=== PATIENT | female | born 1965 | race Caucasian/White ===

== ENCOUNTER → 2017-01-27 | Day surgery (SDC) | payer OTHER ==
[2017-01-27] VITALS (11 sets, daily range): BP systolic 119–160; BP diastolic 77–103; PULSE 78–100; RESP 16–21; O2SAT 92–100
[~2017-01-27] VITALS: Ht 162.6 cm; Wt 97.8 kg
[~2017-01-27] MED LIST: ALBU8.5H2 INHALATION; AMT25T PO; Bupivacaine-MPF 0.5% W/EPI 30 mL Inj NERVEBLOCK ONE; CHOL100045 PO; Clindamycin Inj 600 MG in IV Premix 1 EACH IV ONE; Dexamethasone 4 mg/mL Inj IVPUSH PRN; Dexamethasone 4 mg/mL Inj ONE; EPHEDrine Sulfate 50 mg/mL Inj IVPUSH PRN; GEMF600T3 PO; Gentamicin 40 mg/mL 2 mL Inj IRRIGATION ONE; HYDR-3091 PO; HYDROmorphone 1 mg/mL Inj IVPUSH PRN; Ketamine 10 mg/mL 20 mL Inj ONE; Lactated Ringer's 1,000 ML IV ONE; Lactated Ringer's 1,000 ML IV SCH; Lactated Ringer's 500 ML IV PRN; Lidocaine 2%-Epi 1:100,000 20 mL Inj NERVEBLOCK ONE; MELO-253 PO; MetoCLOpramide 5 mg/mL 2 mL Inj IVPUSH PRN; OMEP20TA86 PO; OXYC-465 PO; Ondansetron 2 mg/mL 2 mL Inj IVPUSH PRN; Ondansetron 2 mg/mL 2 mL Inj ONE; Phenylephrine 10,000 mCg/mL Inj IVPUSH PRN; Propofol 10,000 mCg/mL 20 mL Inj ONE; fentaNYL-PF 50 mCg/mL 2 mL Inj IVPUSH PRN; fentaNYL-PF 50 mCg/mL 2 mL Inj ONE; oxyCODONE-Acetamin 5-325 mg Tablet PO PRN
--- NOTE | 2017-01-27 07:54 | PCM.HPANE ---
Patient Data Surgeon Admitting Provider: Attending Provider:Nomi Laird DPM Primary Care Physician:Vicky Montero PA-C Other Provider:Allan Johnson Anesthesia Reason for Visit Right Midfoot Arthritis Ht/WT & BMI Height (Feet): 5 Height (Inches): 4 Weight (Kilograms): 97.8 Body Mass Index 36.00 Allergies Coded Allergies: Penicillins (Verified Allergy, Unknown, NAUSEA, 01/27/17) cephalexin (Verified Allergy, Unknown, RASH, NAUESA, 01/27/17) aspirin (Verified Adverse Reaction, Severe, N&V, 01/27/17) Past Anesthesia History Anesthesia History: Denies:: Abnormal Airway, Anesthesia Reactions, Difficult Intubation, Malignant Hyperthermia Diabetes History Hx Diabetes?: No MRSA MRSA: No Medications Hypertension Medication: Yes Home Meds Incl Beta Shailesh: No Reported Medications Cholecalciferol (Vitamin D3) (Vitamin D)1,000 Unit Capsule2,000 Unit PO DAILY # 1 BOTTLE Ref 0 01/20/17 Albuterol HFA (Proair HFA)8.5 Gm Hfa.aer.ad2 Puffs INHALATION Q4H PRN PRN #1 INHALER 01/20/17 Omeprazole 20 Mg Tablet.dr20 Mg PO DAILY 01/20/17 Meloxicam 15 Mg [id number] Mg PO DAILY 30 Days Ref 0 01/20/17 Gemfibrozil 600 Mg [id number] Mg PO BID #60 TABLET 01/20/17 Amitriptyline 25 Mg Tab25 Mg PO HS Ref 0 01/20/17 oxyCODONE-Acetaminophen 7.5-325 mg 1 Each Tablet1 Tab PO Q8H PRN For Pain Ref 0 01/20/17 Discontinued Reported Medications Hydrocodone-Acetaminophen 7.5-300 mg 1 Each Tablet1 Each PO Q12H PRN For Pain Ref 0 01/20/17 History History of ENT Problems?: No HEENT History: Denies:: Abnormal Airway Difficult Intubation Denture Type: None Teeth Condition: Within Normal Limits Hx of Heart Problems?: Yes Cardiovascular History: Positive for:: Thrombophlebitis (HX OF "PHLEBITIS" ? ?HX OF DVT RLE) Denies:: Abdominal Aortic Aneurism Heart Murmur Hypertension (HYPERLIPIDEMIA-PT NON COMPLIANT W/ TX) Hx of Respiratory Problem?: Yes Respiratory History: Positive for:: Asthma Use of Inhalers / NEBS Denies:: Use of C-PAP Machine Hx Neurologic Problems?: No Hx of GI Problems?: Yes Hx of Problems?: No Female Hx: Denies:: Currently (HYSTERECTOMY) Skin History: Denies:: History Skin Disorders? Pressure Ulcers Hx Musculoskeletal Problems?: Yes Musculoskeletal History: Positive for:: Musculoskeletal Trauma (S/P RT ANKLE RPR,ORIF RT FOOT/3RD-4TH MT,RT ANKLE HDWRE REMOVAL) Osteoarthritis (RT MIDFOOT ARTHRITIS=CURRENT PROBLEM) Hx of Psycho/Social Problems?: No Hx Surgeries?: Yes (RT ANKLE RPR,RT FOOT ORIF/3RD-4TH MT,B/L CTR,RT FOOT HDWRE REMOVAL,HYST) Hx Any Other Health Problems?: Yes Other History: Denies:: Cancer Endocrine Disease Hospitalization Thyroid Disease Hx Diabetes: No Other Pertinent History: HX OF VITAQMIN D DEFICIENCY Hx Alcohol Use: NoHave You Smoked inLast 12 mo: No Stop/Bang Treated for Sleep Apnea?: No Do You Have a CPAP Machine?: No S-Snoring: Do You Snore Loudly: No T-Tired: feel tired, fatigued: No O-Obsered: Observed not breath: No P-Blood Pressure: treated: No B- Body Mass Index > 35 kg/m2: Yes A- Age over 50: Yes N- Neck Large Circumference: Yes G- Gender Male: No ESTRELLA Total Score: 3 ESTRELLA Risk Assessment: High Risk, =/>3 Yes Risk Assessment Category Category 1A: Patient has history of documented sleep apnea, and HAS NOT received any narcotic, sedative or anesthesia administration during this stay. Category 1B: Patient has history of documented sleep apnea, and HAS received any narcotic , sedative or anesthesia administration during this stay Category 2: Patient has SUSPECTED Obstructive Sleep Apnea, and HAS received any narcotic , sedative or anesthesia administration during this stay. Category 3: Patient has SUSPECTED Obstructive Sleep Apnea and HAS NOT received narcotic, sedative or anesthesia administration during this stay. Category 4: Outpatient in Procedural Areas with known sleep apnea or who screen positive for High Risk via the STOP/BANG questionnaire. Exam Exam Vital Signs Vital Signs Date Time Temp Pulse Resp B/P Pulse Ox O2 Delivery O2 Flow Rate FiO2 01/27/17 07:48 36 78 16 119/82 99 Room Air General Appearance: Alert, Oriented X3, Cooperative, No Acute Distress HEENT/AIRWAY: MP 2 Lungs: Clear to Auscultation, Normal Air Movement Heart: Exam Unremarkable, Regular Rate/Rhythm, No Murmurs/Rubs/Gallops Meds/Labs/Diagnostics Admission Meds Current Medications Lactated Ringer's (Lr) 1,000 ml @ 10 mls/hr Q24H ONCE IV Last administered on 01/27/17t 07:26; Start 01/27/17 at 06:00; Stop 01/28/17 at 05:59 Plan Impression Patient chart reviewed, patient interviewed and anesthestic plan with risks, benefits, and alternatives discussed, and informed consent obtained. ASA Physical Status: ASA3 Severe Disease Anesthetic Plan: GA Bene/Risks/Altern/Consents: Yes HP Complete Prior to Induction: Yes Gerhard Lux MD Jan 27, 2017 07:54
--- NOTE | 2017-01-27 14:42 | PCM.ANEP1 ---
Post Anesthesia PACU Phase 1 Assessment Vital Signs Vital Signs Date Time Temp Pulse Resp B/P Pulse Ox O2 Delivery O2 Flow Rate FiO2 01/27/17 14:35 92 16 145/88 97 Room Air 01/27/17 14:24 36.9 86 21 121/78 92 Nasal Cannula 2 01/27/17 14:16 88 19 131/79 95 Nasal Cannula 2 01/27/17 14:05 36.4 90 20 132/80 96 Nasal Cannula 4 01/27/17 14:00 89 21 137/77 95 Nasal Cannula 4 01/27/17 13:55 93 20 136/85 92 Room Air 01/27/17 13:50 97 19 141/91 95 Room Air 01/27/17 13:45 100 18 160/92 99 Room Air 01/27/17 13:43 37.1 92 17 147/103 100 Simple Mask 8 01/27/17 07:48 36 78 16 119/82 99 Room Air Anesthetic Administered: GA Level of Alertness: Awake, talking JONES's with Equal Strength: Yes Pain: No Nausea or Vomiting: No CV Function & Hydration Stable: Yes Airway Device: none Lungs: Clear to Auscultation, Normal Air Movement Dermatome Level: Full Sensation PACU Phase 2 Assessment Complications: No Follow up Care: No Patient Instructions Provided: N/A Gerhard Lux MD Jan 27, 2017 14:42
--- NOTE | 2017-02-27 10:23 | PCM.PODPO ---
Podiatry Operative Report Date of Service: Jan 27, 2017 Date of Service january 27, 2017 Pre Operative Diagnosis Osteoarthritis midfoot right Retained orthopedic hardware Post Operative Diagnosis Same as preoperative diagnosis Procedure Arthrodesis of the right first second and third tarsometatarsal joint Surgeon Surgeon: Nomi Laird DPM Assistants: None Indication for Procedure Painful osteoarthritis of the right midfoot Findings Articular degeneration of the first second and third tarsometatarsal joint. Retained orthopedic hardware of the right third tarsometatarsal joint Details of Procedure Patient was identified in the preoperative holding area. All preoperative comorbidities and allergies were identified and thoroughly discussed. The patient was transported into the operating room and placed under general anesthesia in the supine position by the anesthesia service. The patient was then prepped and draped in the normal aseptic technique. Attention was first paid to the dorsal aspect of the right midfoot. A #15 blade was utilized to make an approximately 6 cm incision overlying her previous right midfoot scar located between the second and third tarsometatarsal joint. Once that initially her skin all subcutaneous neurovascular structures were identified and retracted out of the surgical field. Careful blunt dissection was performed with a Metzenbaum scissor through subcutaneous tissue to identify deep fascia. A significant amount of scar tissue was noted incorporating the extensor retinaculum. deep fascia was incised with a #15 blade and dissected medially and laterally to expose the second and third tarsometatarsal joints intraoperative C-arm x-ray was used to identify retained orthopedic hardware which had a moderate amount of overlying bony hypertrophy. The retained orthopedic hardware was then removed. A cannulated distractor was then utilized to evaluate the second and third tarsometatarsal joints which were found to be severely degenerative and devoid of articular cartilage. A significant amount of hypertrophic bone was noted on the superior aspect of the tarsometatarsal joints as well area all bony hypertrophy was debrided utilizing a rongeur. A curet was utilized to remove any remaining articular cartilage and subchondral plate from the second and third tarsometatarsal joint. A 2 mm drill was then utilized to fenestrate the joint surfaces until healthy bleeding bone was exposed demineralized bone matrix was inserted into the second and third tarsometatarsal joint. Temporary K wire fixation was placed and cannulated headless Arthrex screws were placed utilizing intraoperative C-arm guidance across the second and third tarsometatarsal joint with compression noted of the joint space. Attention was then paid to the dorsomedial aspect of the right first metatarsal phalangeal joint a 5 cm incision was made directly overlying the dorsomedial aspect of the joint space once that initially her skin all subcutaneous neurovascular structures were identified and retracted out of the surgical field. Blunt dissection was carried down with a Metzenbaum scissor to identify deep fascia. The tibialis anterior tendon was found to insert into the medial cuneiform with a small portion inserting into the base of the first metatarsal. The first metatarsal attachment was reflected. Resection of the first metatarsal base was performed with a sagittal saw and osteotome a curet was utilized to remove all articular cartilage from the medial cuneiform and a 2.0 mm drill was utilized to fenestrate the joint space exposing healthy bleeding bone area for a K wire fixation was placed with the first metatarsal phalangeal joint reduced into the desired position a headless compression screw was placed across the first tarsometatarsal joint utilizing intraoperative C-arm guidance. An attempt was made to place a second screw across the first tarsometatarsal joint however this was unable to be achieved due to the centralized position of the first screw and lack of space laterally. The decision was made to place a second stabilizing screw through the first metatarsal base into the base of the second metatarsal and a fully threaded screw was placed in the normal surgical fashion. Compression was noted of the first tarsometatarsal joint. All wounds were copiously flushed with large amounts of normal saline. Deep closure was performed utilizing number 3. 0 Vicryl and skin closure was performed utilizing number 3. 0 Prolene. The patient was dressed utilizing Adaptic sterile 4 x 4 gauze Kerlix and a moderately compressive Liang compression dressing. No competitions occur during this procedure the patient was awoken by anesthesia and transported out of the operating room.. Grafts, Implants: Implants-See Implant Record Complications There were no periprocedural complications identified. Condition Stable Anesthetic Administered: GA Output, Estimated Blood Loss: 50 Blood Admin during surgery: No Surgical Cast or Splint: Well-padded Short Leg Splint Surgical Specimen Removed: No Specimen sent to Pathology: No Post Operative Plan Nonweightbearing right lower extremity Keep dressing clean dry and intact Follow-up in 1 week Nomi Laird DPM Feb 27, 2017 10:23
== END | disposition home or self-care (01) ==
LOC: SAS 07:05
PROVIDERS: ATTEND Podiatrist Foot & Ankle Surgery
DX: M19.071 Primary osteoarthritis, right ankle and foot (principal); T85.848A Pain due to other internal prosthetic devices, implants and grafts, initial encounter; E78.5 Hyperlipidemia, unspecified; E78.1 Pure hyperglyceridemia; E78.00 Pure hypercholesterolemia, unspecified; R73.01 Impaired fasting glucose; J45.909 Unspecified asthma, uncomplicated; E66.3 Overweight; Z68.37 Body mass index [BMI] 37.0-37.9, adult; Z90.710 Acquired absence of both cervix and uterus
CPT/HCPCS: 28730; 76001; C1713; J1100; J1170; J1580; J2250; J2405; J3010; J7120